=== PATIENT | male | born 1965 | race Caucasian/White ===

== ENCOUNTER 2024-05-01 08:23 | Outpatient (CLI) | payer OTHER, SELFPAY ==
--- NOTE | ~2024-05-01 | MR_ITS ---
EXAMINATION: MR shoulder LT wo con DATE: 05/01/2024 09:21 INDICATION: Left shoulder pain TECHNIQUE: Magnetic resonance imaging (MRI) of the left shoulder was performed without intravenous co ntrast. Sequences included axial PD-weighted FS FSE, coronal oblique PD-weighted FS FSE, coronal obli que T2-weighted FS FSE, sagittal PD-weighted FS FSE, and sagittal T1-weighted SE. COMPARISON: None. FINDINGS: Coracoacromial arch: The acromion undersurface is flat in morphology (type I). The coracoacromial ligament is normal. Mode rate acromioclavicular osteoarthritis. Rotator cuff: Mild supraspinatus tendinopathy. There is a small bursal sided rim rent tear extending 8 mm AP along the superior facet footplate and involving no greater than one third of the tendon thickness. Infrasp inatus and teres minor tendons are normal. Mild subscapularis tendinopathy without tear. Normal rotat or cuff muscle bulk and signal. Biceps tendon, glenoid labrum and glenohumeral cartilage: Long head of the biceps tendon is normal. Small marginal osteophytes extending into no labral tear. T he base of the 10:30-12:00 position of the posterosuperior glenoid labrum. Glenohumeral cartilage is normal. Fluid: Physiologic amount of fluid in the glenohumeral joint and biceps tendon sheath. No loose osteochondr al bodies. Very small amount of fluid in the subacromial/subdeltoid bursa consistent with minimal bur sitis. Bones: Normal marrow signal with no edema, fracture or abnormal marrow replacing process. IMPRESSION: 1. Mild supraspinatus and subscapularis tendinopathy with small shallow rim rent tear along the super ior facet footplate of the supraspinatus tendon. 2. Minimal subacromial/subdeltoid bursitis. 2. Moderate acromioclavicular arthritis. Reviewed, dictated and finalized at location A. IMPRESSION: 1. Mild supraspinatus and subscapularis tendinopathy with small shallow rim eduardo t tear along the superior facet footplate of the supraspinatus tendon. 2. Minimal subacromial/subdeltoid bursitis. 2. Moderate acromioclavicular arthritis.
== END 2024-05-01 08:24 ==
PROVIDERS: PCP Internal Medicine; Visit Provider Orthopaedic Surgery
DX: M19.012 Primary osteoarthritis, left shoulder (principal); M75.52 Bursitis of left shoulder; M75.22 Bicipital tendinitis, left shoulder
CPT/HCPCS: 73221